=== PATIENT | female | born 2000 | race Caucasian/White ===

== ENCOUNTER 2020-10-28 08:42 | Emergency (ER) | payer OTHER ==
[~2020-10-28 08:42] MED LIST: PRENATAL FORMU1 EACH PO
[2020-10-28 09:05] LABS: BILIRUBIN NEGATIVE (NEGATIVE); BLOOD NEGATIVE Ery/uL (NEGATIVE); CLARITY CLEAR (CLEAR); COLOR YELLOW (YELLOW); GLUCOSE (U) NORMAL (NORMAL); LEUKOCYTES 1+ Leu/uL (NEGATIVE); NITRITE NEGATIVE (NEGATIVE); PROTEIN NEGATIVE (NEGATIVE); SPECIFIC GRAVITY >=1.030 (1.001-1.030); UROBILINOGEN 0.2 mg/dL (0.2-1.0); pH 6.5 (5.0-9.0)
[2020-10-28 09:20] LABS: BACTERIA TRACE; URINARY RBC RARE
[2020-10-28] MEDS ORDERED: DIFLUCAN150 M1 PO (09:24)
[2020-10-30 21:11] LABS: CHLAMYDIA TRACHOMATIS, NAA Negative (Negative); NEISSERIA GONORRHOEAE, NAA Negative (Negative)
== END 2020-10-28 09:35 | disposition home or self-care (01) ==
LOC: FER 08:42
PROVIDERS: Emergency Medicine
DX: B37.3 Candidiasis of vulva and vagina (principal); F17.210 Nicotine dependence, cigarettes, uncomplicated
CPT/HCPCS: 81001; 87491; 87591; 99283